=== PATIENT | female | born 1960 | race Caucasian/White ===

== ENCOUNTER 2022-07-04 05:17 | Emergency (ER) | payer BC, SELFPAY ==
[2022-07-04] VITALS (12 sets, daily range): BP systolic 145–183; BP diastolic 69–95; PULSE 59–81; RESP 16–20; TEMP 36.5; O2SAT 91–100; BMI 27.8
--- NOTE | 2022-07-04 05:32 | ED.GENADULT ---
HPI - General Adult <Ramona Darby MD - Last Filed: 07/16/22 18:29> General Chief complaint: Abdominal Pain Stated complaint: abd. pain/center to left back pain Time Seen by Provider: 07/04/22 05:31 History of Present Illness HPI narrative: 61-year-old woman with history of hypertension and reflux presents with acute-onset severe midepigastric pain waking her from sleep at 2:30 a.m. this morning radiating straight through to her back. She is had no significant nausea has not vomited has not noticed any black stools. She is concerned that this may be pancreatitis as she recently started on Monjaro to help with weight loss rather than for treatment of diabetes. She is never had similar pain. She is still passing gas. She describes no fevers, cough, chills, jaundice, headaches, extremity edema. Related Data Previous Rx's Medication Instructions Recorded tramadol 50 mg tablet (Ultram) 50 mg PO Q6H PRN pain #7 tabs 07/04/22 Allergies Allergy/AdvReac Type Severity Reaction Status Date / Time Sulfa (Sulfonamide Allergy Verified 07/04/22 05:35 Antibiotics) Review of Systems <Ramona Darby MD - Last Filed: 07/16/22 18:29> Review of Systems Narrative: Remainder of complete review of systems is otherwise unremarkable except for that included in the HPI. Patient History <Ramona Darby MD - Last Filed: 07/16/22 18:29> Medical History (Updated 07/04/22 @ 09:26 by Sue Sapp DO) Hypertension Social History Smoking Status: Unknown if ever smoked Exam <Ramona Darby MD - Last Filed: 07/16/22 18:29> Initial Vital Signs Initial Vital Signs: Vital Signs Temperature 97.7 F 07/04/22 05:30 Pulse Rate 81 07/04/22 05:30 Respiratory Rate 16 07/04/22 05:30 Blood Pressure 153/95 H 07/04/22 05:30 Pulse Oximetry 100 07/04/22 05:30 Oxygen Delivery Method 07/04/22 05:30 General: Healthy appearing, in no acute distress. Able to give a complete and coherent history. Well-nourished well-developed HEENT: Moist mucous membranes, normal sclera with reactive pupils, Neck: No JVD, supple Respiratory: Lungs are clear to auscultation, no wheezing no rales no rhonchi. Full and symmetrical air movement Cardiac: Regular rate and rhythm no murmurs no bruits Abdomen: Soft, moderate midepigastric tenderness with mild both right and left upper quadrant tenderness. No rebound or guarding., good bowel tones, no flank pain Skin: Warm and dry, no rashes Neurologic: Grossly neurologically intact with no obvious asymmetries or abnormalities Extremities: No trauma, well perfused Psych: Cooperative, appropriate insight and affect <Sue Sapp DO - Last Filed: 07/06/22 20:53> Initial Vital Signs Initial Vital Signs: Vital Signs Temperature 97.7 F 07/04/22 05:30 Pulse Rate 81 07/04/22 05:30 Respiratory Rate 16 07/04/22 05:30 Blood Pressure 153/95 H 07/04/22 05:30 Pulse Oximetry 100 07/04/22 05:30 Oxygen Delivery Method 07/04/22 05:30 Course <Ramona Darby MD - Last Filed: 07/16/22 18:29> Orders Ordered: Discontinued Medications Hydromorphone HCl (Hydromorphone 0.5 Mg Inj) 0.5 mg IV Q15MIN PRN PRN Reason: Pain, Last Admin: 07/04/22 06:26 Dose: 0.5 mg Documented By: LEROY Sodium Chloride (Normal Saline 0.9%) 1,000 mls @ 1,000 mls/hr IV BOLUS ONE Stop: 07/04/22 07:16 Last Infusion: 07/04/22 08:32 Dose: 0 mls/hr Documented By: Admin: 07/04/22 06:26 Dose: 1,000 mls/hr Documented By: LEROY Ondansetron HCl (Ondansetron 4 Mg/2 Ml Inj) 4 mg IV NOW ONE Stop: 07/04/22 05:35 Last Admin: 07/04/22 06:26 Dose: 4 mg Documented By: LEROY Vital Signs Vital signs: Vital Signs - 8 hr 07/04/22 05:30 Temperature 97.7 F Pulse Rate 81 Respiratory Rate 16 Blood Pressure 153/95 H Pulse Oximetry 100 Oxygen Delivery Method Room Air <Sue Sapp DO - Last Filed: 07/06/22 20:53> Orders Ordered: Discontinued Medications Hydromorphone HCl (Hydromorphone 0.5 Mg Inj) 0.5 mg IV Q15MIN PRN PRN Reason: Pain, Last Admin: 07/04/22 06:26 Dose: 0.5 mg Documented By: LEROY Sodium Chloride (Normal Saline 0.9%) 1,000 mls @ 1,000 mls/hr IV BOLUS ONE Stop: 07/04/22 07:16 Last Infusion: 07/04/22 08:32 Dose: 0 mls/hr Documented By: Admin: 07/04/22 06:26 Dose: 1,000 mls/hr Documented By: LEROY Ondansetron HCl (Ondansetron 4 Mg/2 Ml Inj) 4 mg IV NOW ONE Stop: 07/04/22 05:35 Last Admin: 07/04/22 06:26 Dose: 4 mg Documented By: LEROY Vital Signs Vital signs: Vital Signs - 8 hr 07/04/22 05:30 Temperature 97.7 F Pulse Rate 81 Respiratory Rate 16 Blood Pressure 153/95 H Pulse Oximetry 100 Oxygen Delivery Method Room Air Medical Decision Making <Ramona Darby MD - Last Filed: 07/16/22 18:29> Lab Data Result diagrams: 07/04/22 05:33 07/04/22 05:33 Labs: Lab Results 07/04/22 07/04/22 Range/Units 05:33 05:33 WBC 9.3 (4.5-11.0) X10^3/uL RBC 4.46 (4.0-5.2) X10^6/uL Hgb 13.5 (12.0-16.0) g/dL Hct 39.5 (36-46) % MCV 88.5 (80-100) fL MCH 30.2 (26-34) PG MCHC 34.2 (30-36) % RDW 12.6 (11.6-14.8) % Plt Count 192 (150-400) X10^3/uL Neut % (Auto) 63.7 (50-75) % Lymph % (Auto) 27.8 (25-40) % [place] % (Auto) 6.4 (3-14) % Eos % (Auto) 1.4 L (2-4) % Baso % (Auto) 0.7 (0-2) % Neut # (Auto) 5900 (8717-8613) /uL Lymph # (Auto) 2600 (2355-6591) /uL [place] # (Auto) 600 (0-900) /uL Eos # (Auto) 100 (0-450) /uL Baso # (Auto) 100 (0-100) /uL Sodium 139 (137-145) mmol/L Potassium 4.1 (3.4-5.1) mmol/L Chloride 107 (98-107) mmol/L Carbon Dioxide 23 (22-32) mmol/L BUN 15 (7-17) mg/dL Creatinine 0.70 (0.52-1.04) mg/dL Estimated GFR > 60 (>60) mL/min BUN/Creatinine Ratio 21.4 (6-22) Glucose 120 H (80-110) mg/dL Calcium 9.1 (8.4-10.2) mg/dL Total Bilirubin 0.3 (0.2-1.3) mg/dL AST 31 (14-36) IU/L ALT 28 (<35) IU/L Alkaline Phosphatase 104 (38-126) U/L Total Protein 8.5 H (6.3-8.2) g/dL Albumin 4.7 (3.5-5.0) g/dL Globulin 3.8 (1.7-4.1) g/dL Albumin/Globulin Ratio 1.2 (1.0-2.8) Lipase 148 (23-300) U/L ECG Data Interpretation: Sinus rhythm at a rate of 70 Normal axis, normal intervals No acute ischemic changes <Sue Sapp, DO - Last Filed: 07/06/22 20:53> Lab Data Labs: Lab Results 07/04/22 07/04/22 Range/Units 05:33 05:33 WBC 9.3 (4.5-11.0) X10^3/uL RBC 4.46 (4.0-5.2) X10^6/uL Hgb 13.5 (12.0-16.0) g/dL Hct 39.5 (36-46) % MCV 88.5 (80-100) fL MCH 30.2 (26-34) PG MCHC 34.2 (30-36) % RDW 12.6 (11.6-14.8) % Plt Count 192 (150-400) X10^3/uL Neut % (Auto) 63.7 (50-75) % Lymph % (Auto) 27.8 (25-40) % [place] % (Auto) 6.4 (3-14) % Eos % (Auto) 1.4 L (2-4) % Baso % (Auto) 0.7 (0-2) % Neut # (Auto) 5900 (7207-4587) /uL Lymph # (Auto) 2600 (1697-0153) /uL [place] # (Auto) 600 (0-900) /uL Eos # (Auto) 100 (0-450) /uL Baso # (Auto) 100 (0-100) /uL Sodium 139 (137-145) mmol/L Potassium 4.1 (3.4-5.1) mmol/L Chloride 107 (98-107) mmol/L Carbon Dioxide 23 (22-32) mmol/L BUN 15 (7-17) mg/dL Creatinine 0.70 (0.52-1.04) mg/dL Estimated GFR > 60 (>60) mL/min BUN/Creatinine Ratio 21.4 (6-22) Glucose 120 H (80-110) mg/dL Calcium 9.1 (8.4-10.2) mg/dL Total Bilirubin 0.3 (0.2-1.3) mg/dL AST 31 (14-36) IU/L ALT 28 (<35) IU/L Alkaline Phosphatase 104 (38-126) U/L Total Protein 8.5 H (6.3-8.2) g/dL Albumin 4.7 (3.5-5.0) g/dL Globulin 3.8 (1.7-4.1) g/dL Albumin/Globulin Ratio 1.2 (1.0-2.8) Lipase 148 (23-300) U/L Imaging Data CT scan - abdomen/pelvis: Radiologist's Impression: Close Abdomen/Pelvis CT (Signed) Miguel Faye - 07/04/[address] [address] [address] Scan Report Signed Patient: Minerva Fu MR#: [id number] : 1960 Acct:[id number] Age/Sex: 61 / F Date of Service: 07/04/22 Loc: ED Accession Number: [id number] ?? Procedure: CT abdomen pelvis w con Ordering Provider: Ramona Darby MD PROCEDURE:? CT ABDOMEN PELVIS W CON ? INDICATIONS:? acute onset abd pain, mainly epigastric ? TECHNIQUE:? After the administration of intravenous contrast, axial sections acquired from the lung bases to the pubic symphysis.? Coronal and sagittal reformats were performed.? For radiation dose reduction, the following was used:? automated exposure control, adjustment of mA and/or kV according to patient size.? ? COMPARISON:? None. ? FINDINGS: ? Lower thorax: The lung bases are clear.? Heart size normal.? No hiatal hernia. ? Liver:? Normal in size and attenuation. No contour deformity present.? Small subcentimeter right hepatic probable cyst ? Biliary system:? No calcified cholelithiasis or pericholecystic inflammation.? No intra or extrahepatic bile duct dilatation. ? Pancreas:? Unremarkable without mass or inflammation evident. ? Spleen:? Normal in size and density.? Small 5 mm hypodensity in the mid spleen noted. ? Adrenals:? Normal morphology and density. ? Reproductive system:? Unremarkable as visualized.? Small uterine fibroid, 1.6 cm ? Urinary system:? Normal renal size and attenuation. No renal calculi, hydronephrosis, or solid mass present.? Urinary bladder unremarkable. ? Gastrointestinal system:? A slightly prominent loop of fluid-filled small bowel in the left flank is noted with and adjacent wall thickening.? Remainder of the bowel unremarkable without convincing evidence of complete obstruction. ? Appendix:? No findings to suggest acute appendicitis. ? Peritoneal spaces:? No mesenteric or retroperitoneal adenopathy.? No free air.? No free fluid.? ? Vasculature:? The IVC, aorta and iliac vasculature are unremarkable. ? Abdominal wall:? Small periumbilical ventral hernia contains fat without bowel involvement ? Musculoskeletal:? Normal bone mineralization.? Degenerative disc disease and arthropathy noted in lower lumbar spine.? No acute fractures.? ? IMPRESSION: ? 1. Prominent fluid-filled small bowel loop in the left flank may reflect ileus or enteritis.? Consider short-term interval follow-up to exclude developing obstruction, if clinically appropriate. ? 2. Incidental small splenic cyst or hemangioma.? ? Note:? Final report is concordant with preliminary interpretation by [facility] ? ? Approved by: Miguel Faye M.D. on 07/04/2022 at 7:07? MDM Narrative Medical decision making narrative: 07/04/22 Mank: Patient signed out to myself by Dr. Darby. Patient has a history of hypertension, reflux, prior pancreatitis and nutcracker syndrome. Patient seen and evaluated by myself. Labs overall reassuring, CT abdomen pelvis shows some prominent fluid-filled small bowel left flank region, incidental splenic cyst or hemangioma with no other acute findings. 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 She has not had any vomiting, she had very small amount of diarrhea but states her stools are overall normal, discussed with patient plan for some bowel rest, Tylenol for pain management short course of oral narcotic and return precautions. Patient forgot to give a urine sample when she went to urinate. Feel that we have an appropriate reason for her to have pain and does not require urine sample at this time. Discharge Plan Departure Patient Disposition: Home Clinical Impression: Abdominal pain Instructions: DI for Abdominal Pain-Adult Activity Restrictions/Additional Instructions: Please follow-up if your symptoms are persisting. Your imaging today shows some fluid-filled loops in the small bowel which could reflect an ileus or early bowel obstruction. I recommend bowel rest with clear liquid diet for the next 24 hours, pain management with Tylenol or if inadequate can take tramadol 1-2 tablets every 6 hours. If symptoms are improving you may advance your diet tolerated This medication can make you sleepy do not drive, perform hazardous activities or make any major decisions while taking it. This medication will make you constipated please take a stool softener once to twice daily until stools are soft and regular. [facility] [place] Please return for fevers, rapidly worsening pain, persistent vomiting, black or bloody stools, lightheadedness or passing out or other new or concerning changes Prescriptions: New tramadol [Ultram] 50 mg tablet 50 mg PO Q6H PRN (Reason: pain) Qty: 7 0RF Visit Report Forms: Patient Portal/API
[2022-07-04 05:46] LABS: Add Manual Diff / Slide Review NO; Basophils Absolute Auto 100 /uL (0-100); Basophils Percent Auto 0.7 % (0-2); Eosinophils Absolute Auto 100 /uL (0-450); Eosinophils Percent Auto 1.4 % (2-4); Hematocrit 39.5 % (36-46); Hemoglobin 13.5 g/dL (12.0-16.0); Lymphocytes Absolute Auto 2600 /uL (1100-4500); Lymphocytes Percent Auto 27.8 % (25-40); Mean Corpuscular HGB Conc 34.2 % (30-36); Mean Corpuscular Hemoglobin 30.2 PG (26-34); Mean Corpuscular Volume 88.5 fL (80-100); Monocytes Absolute Auto 600 /uL (0-900); Monocytes Percent Auto 6.4 % (3-14); Neutrophils Absolute Auto 5900 /uL (1500-7000); Neutrophils Percent Auto 63.7 % (50-75); Platelet Count 192 X10^3/uL (150-400); Red Blood Cell Count 4.46 X10^6/uL (4.0-5.2); Red Cell Distribution Width 12.6 % (11.6-14.8); White Blood Cell Count 9.3 X10^3/uL (4.5-11.0)
[2022-07-04 05:56] LABS: Alanine Aminotransferase 28 IU/L (<35); Albumin 4.7 g/dL (3.5-5.0); Albumin Globulin Ratio 1.2 (1.0-2.8); Alkaline Phosphatase 104 U/L (38-126); Aspartate Aminotransferase 31 IU/L (14-36); BUN Creatinine Ratio 21.4 (6-22); Bilirubin Total 0.3 mg/dL (0.2-1.3); Blood Urea Nitrogen 15 mg/dL (7-17); Calcium 9.1 mg/dL (8.4-10.2); Carbon Dioxide 23 mmol/L (22-32); Chloride 107 mmol/L (98-107); Estimated Glomerular Filt Rate > 60 mL/min (>60); Globulin 3.8 g/dL (1.7-4.1); Glucose 120 mg/dL (80-110); HEMOLYSIS 24 (0-50); Lipase 148 U/L (23-300); Potassium 4.1 mmol/L (3.4-5.1); Sodium 139 mmol/L (137-145); Total Protein 8.5 g/dL (6.3-8.2)
--- NOTE | 2022-07-04 06:20 | DI.CT.S_ITS ---
PROCEDURE: CT ABDOMEN PELVIS W CON INDICATIONS: acute onset abd pain, mainly epigastric TECHNIQUE: After the administration of intravenous contrast, axial sections acquired from the lung bases to the pubic symphysis. Coronal and sagittal reformats were performed. For radiation dose reduction, the following was used: automated exposure control, adjustment of mA and/or kV according to patient size. COMPARISON: None. FINDINGS: Lower thorax: The lung bases are clear. Heart size normal. No hiatal hernia. Liver: Normal in size and attenuation. No contour deformity present. Small subcentimeter right hepatic probable cyst Biliary system: No calcified cholelithiasis or pericholecystic inflammation. No intra or extrahepatic bile duct dilatation. Pancreas: Unremarkable without mass or inflammation evident. Spleen: Normal in size and density. Small 5 mm hypodensity in the mid spleen noted. Adrenals: Normal morphology and density. Reproductive system: Unremarkable as visualized. Small uterine fibroid, 1.6 cm Urinary system: Normal renal size and attenuation. No renal calculi, hydronephrosis, or solid mass present. Urinary bladder unremarkable. Gastrointestinal system: A slightly prominent loop of fluid-filled small bowel in the left flank is noted with and adjacent wall thickening. Remainder of the bowel unremarkable without convincing evidence of complete obstruction. Appendix: No findings to suggest acute appendicitis. Peritoneal spaces: No mesenteric or retroperitoneal adenopathy. No free air. No free fluid. Vasculature: The IVC, aorta and iliac vasculature are unremarkable. Abdominal wall: Small periumbilical ventral hernia contains fat without bowel involvement Musculoskeletal: Normal bone mineralization. Degenerative disc disease and arthropathy noted in lower lumbar spine. No acute fractures. IMPRESSION: 1. Prominent fluid-filled small bowel loop in the left flank may reflect ileus or enteritis. Consider short-term interval follow-up to exclude developing obstruction, if clinically appropriate. 2. Incidental small splenic cyst or hemangioma. Note: Final report is concordant with preliminary interpretation by [facility] Approved by: Miguel Faye M.D. on 07/04/2022 at 7:07
[2022-07-04] MEDS: ONDANSETRON 4 MG/2 ML INJ IV (06:26)
[2022-07-04] MEDS: HYDROMORPHONE 0.5 MG INJ IV (06:26)
[2022-07-04] MEDS: SODIUM CHLORIDE 0.9% 1,000 ML 1000 ML IV (06:26)
== END 2022-07-04 09:39 | disposition home or self-care (01) ==
PROVIDERS: Emergency Medicine; Emergency Provider Emergency Medicine
DX: R10.13 Epigastric pain (principal)
CPT/HCPCS: 36415; 74177; 80053; 83690; 85025; 93005; 93010; 96361; 96374; 96375; 99284; J1170; J2405; Q9967